=== PATIENT | male | born 1955 | race Caucasian/White ===

== ENCOUNTER 2017-09-08 23:12 | Emergency (ER) | payer OTHER ==
[~2017-09-08 23:12] MED LIST changes: -ACETAMINOPHEN 1000 MG/100 ML 100 ML IV ONE; -CHLORHEXIDINE GLUCONATE 2 % 1 PACK (2 CLOTHS) TOPICAL PRN; -DEXAMETHASONE SOD PHOS 4 MG/ML VIAL IV ONE; -DO NOT ADM ANY ANTICOAGULANT DRUGS PRN; -ESMOLOL HCL 100 MG/10 ML VIAL IV ONE; -FAMOTIDINE 20 MG/2 ML VIAL ONE; -FLUT1SPR5 EACH NARE; -GLYCOPYRROLATE 1 MG/5 ML SYRINGE IV PUSH ONE; -IOHEXOL 350 MG/ML 50 ML BTL (for RAD DIAG) OTHER ONE; -LACTATED RINGER'S 1000 ML IV PRN; -LEVOFLOXACIN 500 MG PREMIX INJ 100 ML IV SCH; -LIDOCAINE HCL 1% PF 5 ML SYRINGE OTHER ONE; -METOPROLOL TARTRATE 25 MG TAB PO PRN; -MIDAZOLAM HCL 2 MG/2 ML VIAL ONE; -ONDANSETRON HCL 4 MG/2 ML VIAL IV ONE; -ONDANSETRON HCL 4 MG/2 ML VIAL IV PUSH PRN; -PHENYLEPH/NS 1000 MCG/10 ML SYR IV ONE; -POVIDONE IODINE 5% (ANTISEPSIS KIT) 4 APPLICATIONS EACH NARE PRN; -PROPOFOL 200 MG/20 ML AMP IV ONE; -SODIUM CHLORID 0.9% 500 ML IV PRN; -ePHEDrine/NS 25 MG/5 ML SYRINGE IV ONE; -oxyCODONE/ACETAMINOPHEN 5 MG/325 MG TAB PO PRN
[2017-09-08 23:17] VITALS: BP 144/74; PULSE 66; RESP 18; TEMP 98.1; O2SAT 98
[2017-09-08] MEDS ORDERED: FLUT1SPR5 EACH NARE (23:41)
--- NOTE | 2017-09-08 23:41 | PD ---
HPI Chief Complaint: Bleeding Time Seen by Provider: 23:24 Travel History International Travel<30 days: No Contact w/Intl Traveler<30days: No Traveled to known affect area: No History of Present Illness HPI The patient is a 62-year-old male who presents to the emergency department for postoperative bleeding. The patient underwent cystoscopy by Dr. Hamm on September 07, 2017 for possible kidney stone at the bottom of the left ureter. The patient states he had a cystoscopy, stent was placed, and he was told that there were varicose veins within the left ureter. The patient states the stent was removed, and he was subsequently discharged home with no Eldridge catheter in place. The patient states he has urinated several times at home, however, the last 3 episodes of urination of had significant blood at the beginning of urination that eventually turned to pink. He does have to strain slightly to urinate, but states that is chronic and secondary to history of BPH. He denies any fever, chills, or sweats. He complains of bilateral lower back pain and is unsure if this is related to the surgery or from lying in bed. The patient does not currently take any blood thinners or anticoagulants. He denies any lightheadedness, dizziness, nausea, vomiting, abdominal pain, or suprapubic discomfort. PFSH Past Medical History Cancer: No Cardiovascular Problems: No Diabetes: Yes Patient Takes Glucophage: Yes (Janumet 09/07/17) Diminished Hearing: No Endocrine: No GERD: Yes Genitourinary: Yes (STONES IN THE PAST) Hepatitis: No Hiatal Hernia: No Immune Disorder: No Kidney Stones: Yes Musculoskeletal: Yes (JOINT PAIN) Psychiatric: No Reproductive: No Respiratory: No Thyroid Disease: No Tetanus Vaccination: Unknown Influenza Vaccination: No Past Surgical History AICD: No Genitourinary Surgery: Yes (CYSTOSCOPY 09/08/17) Joint Replacement: No Pacemaker: No Social History Alcohol Use: Yes (socially) Tobacco Use: No Substance Use: No Allergies-Medications (Allergen,Severity, Reaction): Coded Allergies: bee venom protein (honey bee) (Verified Allergy, Severe, Anaphylaxis, 09/08) penicillin G (Verified Allergy, Unknown, 09/08/17) Reported Meds & Prescriptions Reported Meds & Active Scripts Active Percocet (Oxycodone-Acetaminophen) 5-325 mg Tab 1-2 Tab PO Q6H PRN Levaquin (Levofloxacin) 500 Mg Tablet 500 Mg PO DAILY First dose to be taken tomorrow morning Pravastatin 40 Mg Tab 40 Mg PO DAILY Janumet (Sitagliptin-Metformin) 50-1,000 Mg Tab 1 Tab PO BID Reported Flonase Nasal [place] (Fluticasone Nasal [place]) 50 Mcg/Act [place] 50 Mcg EACH NARE BID Turmeric (Turmeric (Curcuma Longa)) 500 Mg Cap 1 Tab PO DAILY PRN Grape Seed 50 Mg Cap 1 Tab PO DAILY Co Q 10 (Coenzyme Q10 (Ubidecarenone)) 100 Mg Cap 1 Tab PO DAILY Hm [place]-3-6-9 Fatty Acid ([place] 3 Fatty Acids-[place] 6 FA) 1 Cap Cap 1 Tab PO DAILY Glucosamine Chondroitin (Yrrbesiecxk-Lyhgwpbbstc-Wgo C-) 1 Tab Tab 1 Tab PO DAILY E-400 (Vitamin E) 400 Unit Cap 1 Tab PO DAILY Epipen 2-Darion Inj (Epinephrine) 0.3 Mg/0.3 Ml Pfpen 0.3 Mg IM ONCE PRN Review of Systems Except as stated in HPI: all other systems reviewed are Neg HENT: No: Lightheadedness Cardiovascular: No: Chest Pain or Discomfort Respiratory: No: Shortness of Breath Gastrointestinal: No: Nausea, Vomiting, Abdominal Pain Genitourinary: Positive: Hematuria, Hesitancy, Other (Mild bilateral low back pain) Musculoskeletal: No: Weakness Neurologic: No: Weakness, Dizziness Physical Exam Narrative GENERAL: Awake, alert, pleasant 62-year-old male who appears his stated age and is in no acute respiratory distress. SKIN: Focused skin assessment warm/dry. HEAD: Atraumatic. Normocephalic. EYES: No injection or drainage. ENT: No nasal bleeding or discharge. Mucous membranes pink and moist. NECK: Trachea midline. No JVD. CARDIOVASCULAR: Regular rate and rhythm. No murmur appreciated. RESPIRATORY: No accessory muscle use. Clear to auscultation. Breath sounds equal bilaterally. GASTROINTESTINAL: Abdomen soft, non-tender, nondistended. No suprapubic tenderness. Genitourinary: No visible blood or tear at the meatus. No tenderness over the testicles bilaterally. Back: No CVA tenderness. MUSCULOSKELETAL: No obvious deformities. No clubbing. No cyanosis. No edema. NEUROLOGICAL: Awake and alert. No obvious cranial nerve deficits. Motor grossly within normal limits. Normal speech. PSYCHIATRIC: Appropriate mood and affect; insight and judgment normal. Data Data Last Documented VS Vital Signs Date Time Temp Pulse Resp B/P (MAP) Pulse Ox O2 Delivery O2 Flow Rate FiO2 09/08/17 23:17 98.1 66 18 144/74 (97) 98 Orders Orders Complete Blood Count With Diff (09/08/17 23:30) Basic Metabolic Panel (Bmp) (09/08/17 23:30) Urinalysis - C+S If Indicated (09/08/17 23:30) Urine Culture (09/08/17 23:32) Labs Laboratory Tests Test 09/08/17 23:32 White Blood Count 6.7 TH/MM3 Red Blood Count 4.52 MIL/MM3 Hemoglobin 14.5 GM/DL Hematocrit 41.3 % Mean Corpuscular Volume 91.4 FL Mean Corpuscular Hemoglobin 32.1 PG Mean Corpuscular Hemoglobin Concent 35.1 % Red Cell Distribution Width 13.8 % Platelet Count 200 TH/MM3 Mean Platelet Volume 7.9 FL Neutrophils (%) (Auto) 79.4 % Lymphocytes (%) (Auto) 13.2 % Monocytes (%) (Auto) 6.8 % Eosinophils (%) (Auto) 0.1 % Basophils (%) (Auto) 0.5 % Neutrophils # (Auto) 5.3 TH/MM3 Lymphocytes # (Auto) 0.9 TH/MM3 Monocytes # (Auto) 0.5 TH/MM3 Eosinophils # (Auto) 0.0 TH/MM3 Basophils # (Auto) 0.0 TH/MM3 CBC Comment DIFF FINAL Differential Comment Urine Color LIGHT-RED Urine Turbidity HAZY Urine pH 7.0 Urine Specific [place] 1.012 Urine Protein 30 mg/dL Urine Glucose (UA) NEG mg/dL Urine Ketones TRACE mg/dL Urine Occult Blood LARGE Urine Nitrite NEG Urine Bilirubin NEG Urine Urobilinogen LESS THAN 2.0 MG/DL Urine Leukocyte Esterase SMALL Urine RBC /hpf Urine WBC 26 /hpf Microscopic Urinalysis Comment CULTURE INDICATED Blood Urea Nitrogen 11 MG/DL Creatinine 1.38 MG/DL Random Glucose 170 MG/DL Calcium Level 9.3 MG/DL Sodium Level 141 MEQ/L Potassium Level 3.9 MEQ/L Chloride Level 101 MEQ/L Carbon Dioxide Level 27.4 MEQ/L Anion Gap 13 MEQ/L Estimat Glomerular Filtration Rate 52 ML/MIN MDM Medical Decision Making Medical Screen Exam Complete: Yes Emergency Medical Condition: Yes Medical Record Reviewed: Yes Differential Diagnosis Differential diagnosis includes postoperative bleeding, hemorrhagic cystitis, UTI, coagulopathy, urethral tear, hematuria. Narrative Course IV was established, labs are drawn and sent, and the patient was placed on cardiac telemetry monitoring and continuous pulse oximetry monitoring. UA was sent to lab. CBC and BMP were sent to lab. CBC is stable with a hemoglobin of 14.5. Creatinine is 1.38, no baseline to compare. UA does reveal large blood with RBCs and 26 WBCs. Patient received Levaquin intravenously yesterday and has Levaquin orally for the next several days. I discussed the patient with his urologist, Dr. Hamm, who states the patient can be discharged home. The patient is to drink plenty fluids to stay hydrated and avoid aspirin and blood thinners. I relayed this information to the patient, he is comfortable with discharge home and outpatient follow-up on the as previously planned. Diagnosis Primary Impression: Gross hematuria Patient Instructions: General Instructions Additional Instructions: Avoid aspirin and other anticoagulants. Please provide the patient a copy of his labs at discharge. Return if you are unable to pass urine for 6 hours. Follow-up with your urologist as scheduled. Med/Other Pt SpecificInfo: No Change to Meds Disposition: 01 DISCHARGE HOME Condition: Stable Watson Nagy MD Sep 08, 2017 23:41
[2017-09-08 23:51] LABS: AUTOMATED NEUTROPHIL # 5.3 TH/MM3 (1.8-7.7); BASOPHIL % 0.5 % (0.0-2.0); EOSINOPHIL % 0.1 % (0.0-4.0); HEMATOCRIT 41.3 % (39.0-51.0); HEMOGLOBIN 14.5 GM/DL (13.0-17.0); LYMPH % 13.2 % (9.0-44.0); LYMPHOCYTE # 0.9 TH/MM3 (1.0-4.8); MEAN CELL VOLUME 91.4 FL (80.0-100.0); MEAN CORPUSCULAR HEMOGLOBIN 32.1 PG (27.0-34.0); MEAN CORPUSCULAR HGB CONC 35.1 % (32.0-36.0); MEAN PLATELET VOLUME 7.9 FL (7.0-11.0); MONO % 6.8 % (0.0-8.0); MONOCYTE # 0.5 TH/MM3 (0-0.9); NEUT % 79.4 % (16.0-70.0); PLATELET COUNT 200 TH/MM3 (150-450); RED BLOOD COUNT 4.52 MIL/MM3 (4.50-5.90); RED CELL DISTRIBUTION WIDTH 13.8 % (11.6-17.2); WHITE BLOOD COUNT 6.7 TH/MM3 (4.0-11.0)
[2017-09-09 00:11] LABS: BICARBONATE 27.4 MEQ/L (21.0-32.0); CALCIUM 9.3 MG/DL (8.5-10.1); CREATININE 1.38 MG/DL (0.60-1.30)
[2017-09-09 00:18] LABS: BILIRUBIN, URINE NEG (NEG); BLOOD, URINE LARGE (NEG); GLUCOSE,URINE NEG (NEG); KETONE, URINE TRACE mg/dL (NEG); NITRITE,URINE NEG (NEG); URINE LEUKOCYTE ESTERASE SMALL (NEG)
[2017-09-09 00:19] LABS: URINE COLOR LIGHT-RED (YELLW/STRAW)
== END 2017-09-09 00:54 | disposition home or self-care (01) ==
LOC: NEPC 23:12
DX: R31.0 Gross hematuria (principal); M54.5 Low back pain; E11.9 Type 2 diabetes mellitus without complications; Z79.84 Long term (current) use of oral hypoglycemic drugs
CPT/HCPCS: 80048; 81001; 85025; 87086; 99283

== ENCOUNTER → 2017-09-08 | Day surgery (SDC) | payer OTHER ==
[~2017-09-08] VITALS: Ht 180.3 cm; Wt 85.8 kg
[~2017-09-08] MED LIST: ACETAMINOPHEN 1000 MG/100 ML 100 ML IV ONE; CHLORHEXIDINE GLUCONATE 2 % 1 PACK (2 CLOTHS) TOPICAL PRN; CO Q100C9 PO; DEXAMETHASONE SOD PHOS 4 MG/ML VIAL IV ONE; DO NOT ADM ANY ANTICOAGULANT DRUGS PRN; EPIP0.3I IM; ESMOLOL HCL 100 MG/10 ML VIAL IV ONE; FAMOTIDINE 20 MG/2 ML VIAL ONE; FLUT1SPR5 EACH NARE; GLUCTAB6 PO; GLYCOPYRROLATE 1 MG/5 ML SYRINGE IV PUSH ONE; GRAP50CA PO; IOHEXOL 350 MG/ML 50 ML BTL (for RAD DIAG) OTHER ONE; JANU50TA8 PO; LACTATED RINGER'S 1000 ML IV PRN; LEVA500T33 PO; LEVOFLOXACIN 500 MG PREMIX INJ 100 ML IV SCH; LIDOCAINE HCL 1% PF 5 ML SYRINGE OTHER ONE; METOPROLOL TARTRATE 25 MG TAB PO PRN; MIDAZOLAM HCL 2 MG/2 ML VIAL ONE; OMEGCAP21 PO; ONDANSETRON HCL 4 MG/2 ML VIAL IV ONE; ONDANSETRON HCL 4 MG/2 ML VIAL IV PUSH PRN; PERC5TAB12 PO; PHENYLEPH/NS 1000 MCG/10 ML SYR IV ONE; POVIDONE IODINE 5% (ANTISEPSIS KIT) 4 APPLICATIONS EACH NARE PRN; PRAV40TA2 PO; PROPOFOL 200 MG/20 ML AMP IV ONE; SODIUM CHLORID 0.9% 500 ML IV PRN; TURM500C3 PO; VITA400C5 PO; ePHEDrine/NS 25 MG/5 ML SYRINGE IV ONE; oxyCODONE/ACETAMINOPHEN 5 MG/325 MG TAB PO PRN
[2017-09-08 06:50] LABS: AUTOMATED NEUTROPHIL # 2.1 TH/MM3 (1.8-7.7); EOSINOPHIL # 0.1 TH/MM3 (0-0.4); EOSINOPHIL % 3.1 % (0.0-4.0); HEMATOCRIT 40.4 % (39.0-51.0); HEMOGLOBIN 14.2 GM/DL (13.0-17.0); LYMPH % 23.7 % (9.0-44.0); LYMPHOCYTE # 0.8 TH/MM3 (1.0-4.8); MEAN CELL VOLUME 90.9 FL (80.0-100.0); MEAN CORPUSCULAR HEMOGLOBIN 31.8 PG (27.0-34.0); MONO % 12.2 % (0.0-8.0); MONOCYTE # 0.4 TH/MM3 (0-0.9); PLATELET COUNT 202 TH/MM3 (150-450); RED BLOOD COUNT 4.45 MIL/MM3 (4.50-5.90); RED CELL DISTRIBUTION WIDTH 13.8 % (11.6-17.2); WHITE BLOOD COUNT 3.5 TH/MM3 (4.0-11.0)
--- NOTE | 2017-09-08 10:39 | PD.OP ---
Operative Report Date of Surgery: Sep 08, 2017 Preoperative Diagnosis: (1) Gross hematuria Postoperative Diagnosis: (1) Gross hematuria Procedure: Cystoscopy, left retrograde pyelogram left ureteroscopy, fulguration of bleeding sites and left ureteral catheter insertion. Anesthesia: General Surgeon: Tommy Hamm Soakers Supervisor(s): None Operation and Findings: Indication for procedures: Case of a pleasant 62-year-old gentleman with recent development of gross painless hematuria. Workup included a CT scan that demonstrated a questionable filling defect involving the left distal ureter. Patient presents today for further evaluation to include left ureteroscopy. Operative procedures in detail: Patient was brought to the operating suite and placed supine on the cystoscopy table. He was then placed under general anesthesia. He was then repositioned in the dorsolithotomy position and prepped and draped in normal sterile fashion. After appropriate timeout was undertaken I proceeded with cystoscopic evaluation utilizing the rigid cystoscope with the 20 [place] sheath and 30 degree lens. The urethra was patent without stricture formation, the prostatic urethra was mildly obstructing with some enlargement to the lateral lobes as well as the median lobe. Further passive cystoscope within the urinary bladder revealed mild to moderate bladder wall trabeculation. Both right and left ureteral orifices were in correct anatomic position draining clear yellow urine. There were small varicosities noted around both ureteral orifice ease and could possibly have been the source of the hematuria. I then proceeded with passing a sensor 0.035 wire up the patient's left ureter and advanced a 6 [place] open-ended ureteral catheter over this wire. The wire was withdrawn and a left retropyelogram study was performed. There was prompt filling and drainage of the collecting system without any filling defects noted. The wire was left in place and the open-ended catheter was withdrawn. The cystoscope was exchanged for the self dilating ureteroscope and left ureteroscopy was performed. There was a mild degree of narrowing of the very distal left ureter which was easily dilated by virtue of passing the ureteroscope. There was no evidence of any lesions involving the distal half of the ureter. The ureteroscope was then exchanged back to the cystoscope and the open-ended catheter was advanced over the previously placed wire and the wire withdrawn. The Bugbee electrode was utilized to fulgurate the varicosities noted to both right and left ureteral orifices. The bladder was then drained of all irrigant fluid and the cystoscope was withdrawn. A 16 Kyr[place]z 10 cc Eldridge catheter was then placed in the open-ended ureteral catheter was anchored to the Eldridge via a connector. Both catheters were then placed to gravity drainage. The patient tolerated the procedures without complications and was transferred to the PACU in satisfactory condition. Tommy Hamm MD Sep 08, 2017 10:38
[2017-09-08 11:55] VITALS: BP 143/72; PULSE 68; RESP 16; TEMP 98.8; O2SAT 97
--- NOTE | 2017-09-08 13:36 | EKG ---
Date Performed: 09/08/2017 Time Performed: 07:03:37 PTAGE: 62 years EKG: Sinus rhythm NORMAL ECG NO PREVIOUS TRACING DOCTOR: Dyllan Ya Interpretating Date/Time 09/08/2017 13:34:45
== END | disposition home or self-care (01) ==
LOC: HSDC 05:45
PROVIDERS: ATTEND Urology
DX: R31.0 Gross hematuria (principal); Z01.810 Encounter for preprocedural cardiovascular examination
CPT/HCPCS: 00910; 52224; 52351; 74420; 85025; 93005; J0131; J1100; J1956; J2250; J2370; J2405; J3010; J7120; Q9967